=== PATIENT | female | born 1990 | race Caucasian/White ===

== ENCOUNTER 2025-03-06 20:53 | Emergency (ER) | payer OTHER ==
[2025-03-06 21:37] LABS: CLARITY URINE CLEAR (CLEAR); COLOR URINE YELLOW (YELLOW); GLUCOSE URINE NEGATIVE (NEGATIVE); KETONES URINE NEGATIVE (NEGATIVE); LEUKOCYTE ESTERASE URINE 2+ (NEGATIVE); NITRITE URINE NEGATIVE (NEGATIVE); OCCULT BLOOD URINE TRACE (NEGATIVE); PH URINE 7.5 (4.5-8.0); PROTEIN URINE NEGATIVE (NEGATIVE); SPECIFIC GRAVITY URINE 1.010 (1.005-1.030); UROBILINOGEN URINE 1.0 E.U./dL (0.2-1.0)
[2025-03-06 21:51] LABS: BACTERIA URINE TRACE; RBC URINE 0-2 /hpf (0-2); SQUAMOUS EPITHELIAL CELL URINE 1+ /lpf (RARE/1+)
[2025-03-06] MEDS ORDERED: CEPH500T MT (23:17)
[2025-03-06] MEDS ORDERED: PYR200 MT (23:17)
[2025-03-06 23:27] LABS: UCG KIT LOT# 946166; UCG SCREEN NEGATIVE
[2025-03-06 23:37] VITALS: BP 109/66; PULSE 67; RESP 16; O2SAT 99
[2025-03-06] MEDS: PHENAZOPYRIDINE HCL 100MG TABLET PO ONE (23:52)
[2025-03-06] MEDS: CEPHALEXIN 250MG CAPSULE PO ONE (23:52)
== END 2025-03-06 23:58 | disposition home or self-care (01) ==
LOC: ER 20:53
DX: N30.00 Acute cystitis without hematuria (principal)
CPT/HCPCS: 81003; 81025; 99283